=== PATIENT | female | born 1965 | race Caucasian/White ===

== ENCOUNTER 2017-03-17 10:43 | Emergency (ER) | payer BC, OTHER ==
[2017-03-17 11:04] VITALS: BP 126/70
[2017-03-17] MEDS ORDERED: Bacitracin/Neomycin/Polymyxin B Oint 0.9 GM U/D Packet ONE (11:49)
[2017-03-17] MEDS ORDERED: Bacitracin/Neomycin/Polymyxin B Oint 0.9 GM U/D Packet TOP ONE (12:00)
[2017-03-17] MEDS ORDERED: Diphtheria,Pertussis(Acell),Tetanus Vaccine 0.5 ML SDV IM ONE (12:04)
--- NOTE | 2017-03-17 12:05 | EDM.PDOC ---
ED HPI GENERAL MEDICAL PROBLEM - General Chief Complaint: Bite:Animal, Insect Stated Complaint: dog bite, left thigh Time Seen by Provider: 03/17/17 11:00 Source of Information: Reports: Patient History Limitations: Reports: No Limitations - History of Present Illness INITIAL COMMENTS - FREE TEXT/NARRATIVE: Bit by dog at family member's home. Dog has history of biting people in the past. Nothing specifically provoked attack. No noted behavior changes reported by high court justice of dog, such as foaming at mouth/neurological signs. Has not been immunized against Rabies. Patient reports main injury involves left thigh. Has small laceration left lateral hand. No loss of function/tendon injury to hand. Ambulates well but has soreness in area of bites. Is not certain of tetanus status but says it has been "long time" since last immunization. Left Upper Leg Pain Score (Numeric/FACES): 6 - Related Data Allergies Allergy/AdvReac Type Severity Reaction Status Date / Time morphine Allergy Vomiting Verified 03/17/17 10:44 Home Meds: Home Meds Cephalexin [Keflex] 500 mg PO Q6HR #28 cap 03/17/17 [Rx] Past Medical History - Past Health History Medical/Surgical History: Denies Medical/Surgical History Social & Family History - Tobacco Use Smoking Status *Q: Current Every Day Smoker Years of Tobacco use: 29 Packs/Tins Daily: 0.5 - Recreational Drug Use Recreational Drug Use: No ED ROS GENERAL - Review of Systems Review Of Systems: ROS reveals no pertinent complaints other than HPI. ED EXAM, ANIMAL BITE - Physical Exam Exam: See Below Exam Limited By: No Limitations General Appearance: Alert, WD/WN, No Apparent Distress Eye Exam: Bilateral Eye: EOMI, PERRL Head: Atraumatic, Normocephalic Neck: Supple Respiratory/Chest: No Respiratory Distress Extremities: Normal Range of Motion, Normal Capillary Refill Neurological: Alert, Oriented, Normal Cognition, No Motor/Sensory Deficits Psychiatric: Normal Affect, Normal Mood Skin Exam: Normal Color, Warm/Dry, Other (small 1cm skin tear left lateral palm. 6 small puncture wounds from teeth left anterior thigh. 4 linear lacerations noted from bite, full thickness, 1cm, 4cm, and 10cm respectively. No active bleeding. ) ED ANIMAL BITE PROCEDURES - Laceration/Wound Repair Left Upper Anterior Lateral Proximal Thigh Lac/Wound Length In cm: 10 Appearance: Subcutaneous, Irregular, Clean Anesthetic Type: Local Local Anesthesia - Lidocaine (Xylocaine): 1% with EPI, 2% with EPI Local Anesthetic Volume: 5cc Skin Prep: Providone-Iodine (Betadine), Saline Exploration/Debridement/Repair: Wound Explored, Explored to Base, Minimal Debridement, No Foreign Material Found Closed With: Sutures Suture Size: 3-0 # of Sutures: 5 Suture Type: Prolene, Interrupted Sterile Dressing Applied: Nurse Tetanus Status Addressed: Yes Complications: No Progress/Comments: Wound edges approximated but spacing of sutures widened to help with wound drainage. Left Upper Anterior Medial Proximal Thigh Lac/Wound Length In cm: 4 Appearance: Subcutaneous, Irregular, Clean Anesthetic Type: Local Local Anesthesia - Lidocaine (Xylocaine): 1% Plain Local Anesthetic Volume: 5cc Skin Prep: Providone-Iodine (Betadine), Saline Exploration/Debridement/Repair: Wound Explored, In a Bloodless Field, Explored to Base, Multiple Flaps Aligned Closed With: Sutures Suture Size: 3-0 # of Sutures: 4 Suture Type: Prolene Sterile Dressing Applied: Nurse Complications: No Left Lower Anterior Thigh Lac/Wound Length In cm: 1 Appearance: Subcutaneous, Irregular Local Anesthesia - Lidocaine (Xylocaine): 2% Plain Local Anesthetic Volume: 2cc Skin Prep: Providone-Iodine (Betadine), Saline Exploration/Debridement/Repair: Wound Explored, In a Bloodless Field, Explored to Base Closed With: Sutures Suture Size: 3-0 # of Sutures: 1 Suture Type: Prolene Sterile Dressing Applied: Nurse Complications: No Course - Vital Signs Last Recorded V/S: Last Vital Signs Temp 37.5 C 03/17/17 11:01 Pulse 100 03/17/17 11:01 Resp 18 03/17/17 11:01 BP 126/70 03/17/17 11:01 Pulse Ox 99 03/17/17 11:01 - Orders/Labs/Meds Meds: Medications Discontinued Medications Generic Name Dose Route Start Last Admin Trade Name Khoi PRN Reason Stop Dose Admin Lidocaine HCl 5 ml 03/17/17 11:12 03/17/17 11:34 Xylocaine-Mpf 1% INJECT 03/17/17 11:13 Not Given ONETIME ONE Lidocaine HCl Confirm 03/17/17 11:32 03/17/17 11:36 Xylocaine 2% Administered 03/17/17 11:33 Not Given Dose 10 ml .ROUTE .STK-MED ONE Neomycin/Polymyxin/Bacitracin Confirm 03/17/17 11:49 Triple Antibiotic Oint Administered 03/17/17 11:50 Dose 1 each .ROUTE .STK-MED ONE - Re-Assessments/Exams Free Text/Narrative Re-Assessment/Exam: 03/17/17 12:14 Lacerations of thigh repaired. Tetanus updated. Antibiotic ointment applied. Hand laceration did not require suture repair. While patient was in ER, body of dog (family did shoot the dog on the premises after the bite incident) was driven to local vet in order to obtain brain for Rabies testing. Laceration care discussed with patient. Placed on Keflex. She is to follow up two days from now at the clinic here for wound recheck as well as review of plan for testing dog for Rabies as well as continued medical planning in case patient is deemed candidate for IGG/Rabies treatment. Departure - Departure Time of Disposition: 12:18 Disposition: Home, Self-Care 01 Condition: Good Clinical Impression: Dog bite of extremity - Discharge Information Prescriptions: Cephalexin [Keflex] 500 mg PO Q6HR #28 cap Instructions: Animal Bite, [id number], Sutured Wound Care, [id number] Referrals: PCP,None [Primary Care Provider] - Additional Instructions: Suture care and wound care as discussed. Follow up Sunday for wound recheck in clinic. At that time review what is happening with the vet sending in for Rabies testing as well as if IGG treatment should be performed. IGG can be given Sunday at the clinic if needed. Pending testing results from the dog, additional treatment may be required. Sutures out in 8-10 days at clinic. Recommend Sunday the . Follow up earlier if any signs of infection develop.
== END 2017-03-17 14:35 | disposition home or self-care (01) ==
LOC: LL.ED 10:43
DX: S71.152A Open bite, left thigh, initial encounter (principal); F17.210 Nicotine dependence, cigarettes, uncomplicated; Z88.6 Allergy status to analgesic agent; Z23 Encounter for immunization; W54.0XXA Bitten by dog, initial encounter
CPT/HCPCS: 12005; 90715; 99283